=== PATIENT | female | born 1965 | race African-American/Black ===

== ENCOUNTER 2016-12-19 19:24 | Emergency (ER) | payer OTHER ==
[2016-12-19 19:34] VITALS: BP 145/95; PULSE 90; TEMP 98; BMI 28.3
[2016-12-19] MEDS ORDERED: FLUCONAZOLE 50 MG TABLET PO ONE (20:14)
--- NOTE | 2016-12-19 20:14 | PDOC ---
History of Present Illness - General Chief Complaint: Vaginal Sxs Stated Complaint: VAGINAL ITCH Time Seen by Provider: 12/19/16 19:42 History Source: Patient - History of Present Illness Timing/Duration: reports: intermittent Quality: reports: severe Past History - Past Medical History Allergies/Adverse Reactions: Allergies Allergy/AdvReac Type Severity Reaction Status Date / Time No Known Allergies Allergy Verified 12/19/16 19:34 Home Medications: Ambulatory Orders Benzocaine/Resorcin/Aloe/E,A,D [Vagisil Cream] 28 gm TP ASDIR #1 cream..g. 12/19 - Psycho/Social/Smoking Cessation Hx Suicidal Ideation: No Smoking History: Current every day smoker Number of Cigarettes Smoked Daily: 3 Information on smoking cessation initiated: No Hx Alcohol Use: No Drug/Substance Use Hx: No Review of Systems - Review of Systems Constitutional: No: Chills, Fever ABD/GI: No: Nausea, Vomiting, Abdominal cramping : No: Burning, Dysuria, Discharge, Lesions *Physical Exam - Vital Signs Last Vital Signs Temp Pulse Resp BP Pulse Ox 98.0 F 90 18 145/95 100 12/19/16 19:29 12/19/16 19:29 12/19/16 19:29 12/19/16 19:29 12/19/16 19:29 - Physical Exam General Appearance: Yes: Appropriately Dressed. No: Apparent Distress HEENT: positive: Normal Voice Neck: positive: Supple Respiratory/Chest: negative: Respiratory Distress Female Pelvic Exam: positive: normal external exam, normal adnexa. negative: CMT, discharge, lesions Gastrointestinal/Abdominal: positive: Soft. negative: Tender Medical Decision Making - Medical Decision Making 12/19/16 20:10 51-year-old female, no significant history, presents with vaginal itching. Pt reports itching to her external genitalia 1 month and has been using using over -the-counter monistat and states symptoms appeared to be improving at some point but that it worsened today. Denies vaginal discharge, abd pain, n/v/f/c. Not sexually active x years per pt and continues to get monthly menses. No new soaps/lotions. States she had a physical recently and that all her labs including blood sugar were negative See exam Vaginal itching x 1 month Not menopausal or sexually active per pt No new soaps/products No h/o DM w/ nl BG on labs recently Stable w/ unremarkable pelvic exam -diflucan in ED -dc w/ vagisil and [facility] f/u 12/19/16 20:16 *DC/Admit/Observation/Transfer Diagnosis at time of Disposition: Vaginal itching - Discharge Dispostion Condition at time of disposition: Good - Prescriptions Prescriptions: Benzocaine/Resorcin/Aloe/E,A,D [Vagisil Cream] 28 gm TP ASDIR #1 cream..g. - Patient Instructions Printed Discharge Instructions: DI for Vaginal Itching Additional Instructions: Apply vagisil as needed and follow up with your [facility]
[2016-12-19] MEDS ORDERED: FLUCONAZOLE 100 MG TABLET (UD) ONE (20:17)
== END 2016-12-19 20:22 | disposition home or self-care (01) ==
LOC: JERFT 19:24
DX: N89.8 Other specified noninflammatory disorders of vagina (principal)
CPT/HCPCS: 99281-25